=== PATIENT | female | born 1955 | race Caucasian/White ===

== ENCOUNTER → 2022-05-01 12:14 | Outpatient (CLI) | payer OTHER, SELFPAY ==
--- NOTE | 2022-05-01 | DI.MRI.S_ITS ---
PROCEDURE: MR KNEE RT WO CON INDICATIONS: Unspecified internal derangement of right knee TECHNIQUE: Noncontrast sagittal PD fast spin echo and T2 fast spin echo with fat saturation, sagittal 3-D FLASH with fat saturation; coronal T1 spin echo and PD fast spin echo with fat saturation, and axial PD fast spin echo with fat saturation through the knee. COMPARISON: [facility] Vernon Wray, CR, XR KNEE 4+ VIEWS RIGHT, 04/18/2022, 14:16. FINDINGS: Image quality: Excellent. Anterior Cruciate Ligament: Intact. Posterior Cruciate Ligament: Intact. Medial Collateral Ligament: Intact. Lateral Collateral Ligament: Intact. Medial Meniscus: There is a markedly diminutive appearance of the medial meniscal body that may be secondary to prior partial meniscectomy. The meniscal body is mildly extruded beyond the femorotibial joint line. Increased signal intensity within the meniscal body may represent fibrovascular granulation tissue or recurrent horizontal oblique tearing extending to the femoral articular surface. Lateral Meniscus: Intact. Medial and Lateral Tendons: The semimembranosus tendon insertions and meniscocapsular junction appear intact. Visualized portions of the pes anserinus tendons appear normal. No abnormal bursal fluid. The long and short heads of the biceps femoris tendon appear intact. The popliteus tendon appears intact. No signs of posterolateral corner injury. Iliotibial band appears normal. Anterior Structures: The quadriceps and patellar tendons appear intact. No patellar subluxation. No femoral trochlear dysplasia or ventral trochlear prominence. Mild scarring is seen in the infrapatellar fat pad. Bones: No acute trabecular bone injury or fracture. Medial Femorotibial Cartilage: Full-thickness cartilage loss is seen in the central weight-bearing portion of the medial femoral condyle and medial tibial plateau peripherally with subchondral edema and small marginal osteophytes. There is background diffuse cartilage thinning in the medial compartment. Lateral Femorotibial Cartilage: Partial-thickness cartilage surface irregularity is seen at the central to posterior weight-bearing portion of the lateral tibial plateau. Patellofemoral Cartilage: Full-thickness cartilage loss is seen at the median ridge/medial facet of the patella with subchondral cystic changes. Focal high-grade cartilage loss or cartilage fissuring is seen at the trochlear groove. Soft Tissues: A small joint effusion is present. No medial popliteal cyst. The musculature surrounding the knee is normal in bulk. IMPRESSION: 1. Diminutive appearance of the medial meniscal body is likely secondary to a prior partial meniscectomy. There is mild extrusion of the residual meniscal body with superimposed linear hyperintense signal that may represent fibrovascular granulation tissue or recurrent horizontal oblique tearing extending to the femoral articular surface. 2. Full-thickness cartilage loss in the central weight-bearing portion of the medial femorotibial compartment with subchondral edema and subchondral osteophyte formation. 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 3. Cruciate and collateral ligaments are intact. No acute trabecular bone injury. 4. Small joint effusion. Approved by: David Spaulding M.D. on 05/01/2022 at 16:17
== END ==
PROVIDERS: PCP Physician Assistant Medical; Referring Provider Orthopaedic Surgery Foot and Ankle Surgery; Visit Provider Orthopaedic Surgery Foot and Ankle Surgery
DX: M23.91 Unspecified internal derangement of right knee (principal); M94.261 Chondromalacia, right knee; M25.461 Effusion, right knee
CPT/HCPCS: 73721